=== PATIENT | female | born 1960 | race Caucasian/White ===

== ENCOUNTER 2024-06-20 08:03 | Inpatient (IN) | payer MEDICARE, MEDICAID ==
[~2024-06-20] VITALS: Ht 152.4 cm; Wt 84.2 kg
[2024-06-20] VITALS (23 sets, daily range): BP systolic 95–148; BP diastolic 57–97; PULSE 56–96; TEMP 97.4–98.4
[~2024-06-20 08:03] MED LIST: ALBUTEROL SULFAT3 M3 IH; ALDACTONE 25MG25 M1 PO; BREZTRI AEROS10.7 GM IH; CARDIZEM CD 18180 MG PO; CARDIZEM CD 24240 MG PO; CELEXA40 MG PO; COLACE 100100 MG/CAP PO; CYMBALTA 60MG60 MG PO; FENTANYL 50MCG TOP; FLEXERIL 1010 MG/TAB PO; GLUCOPHAGE500 MG/TAB PO; LIPITOR20 MG PO; LORTAB 10/500 51 TAB PO; LYRICA 50MG CAP50 MG PO; NORCO 325 MG-51 TAB PO; NORCO 325 MG-7.1 TAB PO; PROAIR HFA0.09 MG/AC IH; PROLIA60 MG/ML SQ; REQUIP 1MG T1 MG/TAB PO; REQUIP5 MG PO; RITALIN 20M20 MG/TAB PO; RITALIN10 MG PO; RT ADVAIR 228 DISKUS IH; RT SPIRIVA18 MCG IH; TRICOR145 MG PO; TYLENOL EXTRA500 M1 PO; XANAX 0.5MG0.5 MG PO; [UNRECOGNIZED DRUG - OTHER]
[2024-06-20] MEDS ORDERED: fentaNYL 50 MCG/ML 2 ML VIAL IV SCH ×2 (09:53→10:04)
[2024-06-20] MEDS ORDERED: fentaNYL 50 MCG/ML 2 ML VIAL IV ONE (10:33)
--- NOTE | 2024-06-20 10:45 | NUR ---
Pt arrived post lung bx to EU 10. Pt visably uncomfortable, diaphoretic and restless in bed. Cool clothe and fan provided for comfort. Dr Palmer was in room to reassess pt. Bedside CXR completed. Dr Palmer gave order for additional dose of fentanyl, see EMAR. Pt has been readjusting self in bed to attempt to find position of comfort. Now resting in left side lying position, stating this is more comfortable. Now rates pain 7 out of 10, was rating at 10 of 10 on arrival to EU. Call light in reach. Dressing over chest tube site remains clean, dry and intact. Call light in reach. Pt expresses understanding of plan to admit for further observation.
--- NOTE | 2024-06-20 10:53 | NUR ---
Pt states she is feeling much better. Now rates pain 4.5 out of 10. Able to speak in short, full sentences, where she was previously struggeling with more than one word at a time. She denies further needs at this time.
[2024-06-20] MEDS ORDERED: Acetaminophen 325 MG TAB PO PRN (11:15)
[2024-06-20] MEDS ORDERED: Polyethylene Glycol 3350 17 GM PDS PO PRN (11:15)
[2024-06-20] MEDS ORDERED: Docusate Sodium 100 MG CAP PO PRN (11:15)
[2024-06-20] MEDS ORDERED: Ondansetron 4 MG/2 ML VIAL IV PRN (11:15)
[2024-06-20] MEDS ORDERED: Acetaminophen 500 MG TAB PO PRN (11:15)
[2024-06-20] MEDS ORDERED: Lidocaine 4% Topical Patch TP SCH (11:24)
[2024-06-20] MEDS ORDERED: HYDROcodone/Acetaminophen 7.5-325 MG TAB PO PRN ×2 (11:30)
[2024-06-20] MEDS ORDERED: Albuterol/Ipratropium 3 MG-0.5 MG/3 ML Neb Soln IH PRN (11:30)
--- NOTE | 2024-06-20 11:30 | NUR ---
Report called to RONDA Bullock on Medical Floor. Pt states she is feeling much better. Able to transfer from bed to wheelchair without difficulty. She is taken with belongings to 316 and bedside handoff to RONDA Bullock. Respirations even, unlabored.
--- NOTE | 2024-06-20 11:59 | NUR ---
CHEST TUBE PLACED AT [address] RODRIGUEZ.
--- NOTE | 2024-06-20 12:00 | NUR ---
PATIENT ANSWERED YES TO QUESTION TO [facility]UM[place] SUICIDE SCALE. MODERATE RISK. DR SHAH GAVE THIS RN ORDERS TO D/C Q15 MIN CHECKS.
--- NOTE | 2024-06-20 13:31 | NUR ---
PATIENT ARRIVED TO FLOOR AT APPROX 1130. PATIENT IS ALERT, ORIENTED, AND HAS STEADY GAIT. ADMISSION ASSESSMENTS COMPLETE. CHEST TUBE TO ANTERIOR LEFT CHEST IS CDI. SCANT AMOUNT OF DRAINAGE NOTED IN THE TUBE. PATIENT COMPLAINING OF PAIN 5/10 LEFT CHEST. LIDOCAINE PATCH APPLIED TO LEFT CHEST NEXT TO CHEST TUBE DRSG. DENIES FURTHER NEEDS OR CONCERNS AT THIS TIME. PATIENT ORIENTED TO ROOM, CALL LIGHT WITHIN REACH.
[2024-06-20] MEDS ORDERED: Dextrose (Glucose) 15 GM (4 x 3.75 GM) Chewable TABLET PACK PO PRN (14:00)
[2024-06-20] MEDS ORDERED: Glucagon 1 MG VIAL IM PRN (14:00)
[2024-06-20] MEDS ORDERED: Dextrose 50% Water 25 GM/50 ML SYRINGE IV PRN (14:00)
[2024-06-20] MEDS ORDERED: Heparin 5,000 UNITS/ML 1 ML VIAL SQ SCH (16:00)
[2024-06-20] MEDS ORDERED: Insulin Lispro (HumaLOG) SQ SCH (17:00)
[2024-06-20] MEDS ORDERED: Budesonide Neb Susp 0.5 MG/2 ML AMP IH SCH (19:00)
--- NOTE | 2024-06-20 19:00 | NUR ---
PATIENT RESTING ON LEFT SIDE WITH TV ON WITH NO FAMILY PRESENT WITH NO ACUTE DISTRESS NOTED. PATIENT ON 2 LITERES OF OXYGEN VIA NC. INT TO LEFT WRIST INTACT WITH NO COMPLICATIONS NOTED. PLEURX DRAIN INTACT, CLEAN, AND DRY. BEDSIDE SHIFT REPORT COMPLETED WITH KIM AT THIS TIME. PATIENT DENIES ANY NEEDS. BED IN LOW POSITION WITH WHEELS LOCKED WITH RAILS UP X3 AND CALL LIGHT WITHIN REACH.
--- NOTE | 2024-06-20 19:40 | NUR ---
PATIENT RESTING ON RIGHT SIDE WITH TV ON WITH NO FAMILY PRESENT WITH NO ACUTE DISTRESS NOTED. PATIENT ON 2 LITERS OF OXYGEN VIA NC. INT TO LEFT WRIST INTACT WITH NO COMPLICAITONS NOTED. PLEURX DRAIN CHEST TUBE INTACT TO LEFT UPPER CHEST WITH NO DRAINAGE NOTED AND DRESSING CLEAN, DRY, AND INTACT. ASSESSMENT COMPLETED AT THIS TIME. PATIENT TOLERATED WELL. ALL NEEDS MET. BED IN LOW POSITION WITH WHEELS LOCKED WITH RAILS UP X3 AND CALL LIGHT WITHIN REACH.
[2024-06-20] MEDS ORDERED: Spironolactone 25 MG TAB PO SCH (21:00)
[2024-06-20] MEDS ORDERED: dilTIAZem CD (24-HR) 240 MG CAP PO SCH (21:00)
[2024-06-20] MEDS ORDERED: Pregabalin 50 MG CAP PO SCH (21:00)
[2024-06-20] MEDS ORDERED: Budesonide/Glycopyrrolate/Formoterol **** subs to Budesonide + Umeclid/Vilant IH SCH (21:00)
[2024-06-20] MEDS ORDERED: DULoxetine 60 MG CAP PO SCH (21:00)
[2024-06-21] VITALS (7 sets, daily range): BP systolic 105–130; BP diastolic 71–80; PULSE 72–82; TEMP 98–98.3
[2024-06-21 06:41] LABS: BASO # 0.1 K/mm3 (0.0-0.2); BASO % 0.7 % (0.0-2.0); EOS # 0.2 K/mm3 (0.0-0.7); EOS % 1.1 % (0.0-4.0); GRAN # 9.6 K/mm3 (1.4-6.5); GRAN % 66.4 % (42.2-75.2); HEMOGLOBIN 14.7 g/dl (12.5-16.0); LYMPH # 3.3 K/mm3 (1.2-3.4); LYMPH % 22.5 % (20.0-51.0); MEAN CELL VOLUME 92 fl (80.0-100.0); MEAN CORPUSCULAR HEMOGLOBIN 30 pg (27-31); MEAN CORPUSCULAR HGB CONC 33 g/dl (33.0-37.0); MEAN PLATELET VOLUME 9.3 fl (7.4-10.4); MONO # 1.3 K/mm3 (0.1-0.6); MONO % 8.8 % (1.7-9.3); PLATELET COUNT 393 K/mm3 (130-400); RED BLOOD COUNT 4.92 M/mm3 (4.10-5.30); REDCELL DISTRIBUTION WIDTH-CV 13.6 % (11.5-14.5)
[2024-06-21 06:53] LABS: CALCIUM 10.6 mg/dL (8.4-10.2); CREATININE, serum 0.77 mg/dL (0.57-1.11); POTASSIUM 4.4 mEq/L (3.5-4.5)
--- NOTE | 2024-06-21 07:34 | NUR ---
Bedside report received from RONDA Araiza. Pt resting in bed with eyes closed and no complaints. Call light within reach.
[2024-06-21] MEDS ORDERED: Fenofibrate 54 MG TABLET PO SCH (09:00)
[2024-06-21] MEDS ORDERED: Umeclidinium/Vilanterol 62.5-25 MCG INHALATION/INHALER IH SCH (09:00)
[2024-06-21] MEDS ORDERED: Fenofibrate (Tricor) 145 MG **** subs to Fenofibrate (Lofibra) 162 MG PO SCH (09:00)
--- NOTE | 2024-06-21 09:00 | NUR ---
Pt awake in bed upon entry to room. Shift assessment completed. VSS with O2 in place at 1L NC with no irritation to bilateral nares or skin behind ears. Pt states she has some mild pain from tube insertion on Lt chest. Pain rates 4/10. PRN Tylenol administered as ordered. Pleurix tube in place into Lt chest covered with gauze and tape, CDI. INT to Lt wrist patent with no swelling, redness, or drainage. Pt ambulates independently with no complications. Pt has no request at this time. Call light within reach.
--- NOTE | 2024-06-21 11:28 | NUR ---
collision worker met with pt who reports she lives alone in [place]. She reports to see Dr. Maryanne Calzada and obtains medications from [facility] with no difficulties. She confirmed her insurance as [place] and Medicaid. She states to need assistance with bathing and dressing, which her son, Sammy [phone] is her "caregiver" and he checks on her. She is able to use the restroom on her own. She uses a cane and [facility] for DME. She does not have a DPOA-HC, but reports she brought in her living will. She was agreeable to her son being NOK. Discharge Plan: home
--- NOTE | 2024-06-21 16:46 | NUR ---
Discahrge instructions provided to pt and pt verbalized understanding of discharge paperwork. INT to Lt wrist discontinued with tip intact, pt tolerated well with no complaints. Pt is leaving facility with son back to home.
== END 2024-06-21 16:35 | disposition home or self-care (01) | DRG 201 ==
LOC: COL.RAD 08:03 → MEDICAL 10:41
PROVIDERS: ADMIT Internal Medicine
PROC: 0BBG3ZX Excision of Left Upper Lung Lobe, Percutaneous Approach, Diagnostic (ICD-10-PCS; 2024-06-20)
PROC: 0W9B30Z Drainage of Left Pleural Cavity with Drainage Device, Percutaneous Approach (ICD-10-PCS; principal; 2024-06-21)
DX: J95.811 Postprocedural pneumothorax (principal); E78.5 Hyperlipidemia, unspecified; F90.9 Attention-deficit hyperactivity disorder, unspecified type; R91.8 Other nonspecific abnormal finding of lung field; J44.9 Chronic obstructive pulmonary disease, unspecified; G89.29 Other chronic pain; E11.9 Type 2 diabetes mellitus without complications; F32.A Depression, unspecified; M81.0 Age-related osteoporosis without current pathological fracture; I10 Essential (primary) hypertension; Z23 Encounter for immunization; Z90.49 Acquired absence of other specified parts of digestive tract; Z90.710 Acquired absence of both cervix and uterus; Z90.89 Acquired absence of other organs; Z79.899 Other long term (current) drug therapy; Z79.84 Long term (current) use of oral hypoglycemic drugs; Z87.891 Personal history of nicotine dependence; Z88.6 Allergy status to analgesic agent
CPT/HCPCS: C1729; J3010